=== PATIENT | male | born 1980 | race Asian ===

== ENCOUNTER 2018-10-29 10:04 | Emergency (ER) | payer OTHER ==
[~2018-10-29] VITALS: Ht 177 cm; Wt 75.0 kg
[2018-10-29 10:10] VITALS: BP 136/74; TEMP 97.1
[2018-10-29] MEDS ORDERED: PHARMASSURE CHE30 MG (10:18)
[2018-10-29] MEDS ORDERED: ZOFRAN ODT8 MG PO (10:23)
[2018-10-29] MEDS ORDERED: OMNICEF 300MG300 MG PO (10:24)
[2018-10-29 10:47] LABS: BASO # 0.1 (0.0-0.2); BASO % 0.8 % (0.0-2.0); EOS # 0.1 (0.0-0.7); EOS % 1.8 % (0-4.0); GRAN # 3.9 (1.4-6.5); GRAN % 63.7 % (42.2-75.2); HEMATOCRIT 42.1 % (42.0-52.0); HEMOGLOBIN 13.5 g/dl (13.5-18.0); LYMPH # 1.6 (1.2-3.4); MEAN CELL VOLUME 77 fl (80.0-100.0); MEAN CORPUSCULAR HEMOGLOBIN 25 pg (27.0-31.0); MEAN CORPUSCULAR HGB CONC 32 g/dl (33.0-37.0); MEAN PLATELET VOLUME 10.9 fl (7.4-10.4); MONO # 0.5 (0.1-0.6); MONO % 7.4 % (1.7-9.3); PLATELET COUNT 234 K/mm3 (130-400); RED BLOOD COUNT 5.46 M/mm3 (4.20-5.60); REDCELL DISTRIBUTION WIDTH-CV 13.8 % (11.5-14.5)
[2018-10-29] MEDS ORDERED: NORCO 325 MG-51 TAB PO (10:57)
[2018-10-29 11:01] LABS: ALBUMIN 4.3 gm/dL (3.5-5.0); BILIRUBIN,TOTAL 0.4 mg/dL (0.0-1.0); CALCIUM 9.3 mg/dL (8.4-10.2); CREATININE, serum 0.81 mg/dL (0.66-1.25); POTASSIUM 4.2 mmol/L (3.4-5.0); TOTAL PROTEIN 7.5 gm/dL (6.4-8.2)
[2018-10-29 11:21] VITALS: PULSE 76
== END 2018-10-29 11:23 | disposition home or self-care (01) ==
LOC: COL.ER 10:04
PROVIDERS: Emergency Medicine
DX: N20.0 Calculus of kidney (principal)